=== PATIENT | female | born 1970 | race African-American/Black ===

== ENCOUNTER 2016-10-27 18:09 | Emergency (ER) | payer SELFPAY ==
[~2016-10-27] VITALS: Ht 154.9 cm; Wt 56.7 kg
[2016-10-27 18:15] VITALS: BP 159/112
[2016-10-27 19:07] LABS: BILIRUBIN,URINE NEGATIVE (NEG); GLUCOSE,URINE NEGATIVE (NEG); NITRITE,URINE NEGATIVE (NEG); PROTEIN,URINE NEGATIVE (NEG-TRACE); UROBILINOGEN,URINE 0.2 mg/dL (0.2 mg/dL)
[2016-10-27 19:12] LABS: BARBITURATES NEG (NEG); BENZODIAZEPINES NEG (NEG); CANNABINOIDS NEG (NEG); COCAINE POS (NEG); ETHANOL, URINE NEG (NEG); METHADONE NEG (NEG); OPIATES NEG (NEG); PHENCYCLIDINE NEG (NEG)
[2016-10-27] MEDS ORDERED: AZITHROMYCIN 250 MG TABLET PO ONE (19:15)
[2016-10-27] MEDS ORDERED: HYDROXYZINE IM 50 MG/ML VIAL. IM ONE (19:15)
[2016-10-27] MEDS ORDERED: CEFTRIAXONE IM 250 MG VIAL. IM ONE (19:15)
[2016-10-27] MEDS ORDERED: ONDANSETRON ODT 4 MG TAB.RAPDIS PO ONE (19:15)
[2016-10-27 19:33] LABS: BACTERIA,URINE 0 /HPF (0-FEW); RBC,URINE 0 /HPF (0-2); SQUAMOUS EPITHELIAL CELL,UR OCC /LPF; WBC,URINE OCC /HPF (0-4)
--- NOTE | 2016-10-27 22:00 | PHYS DOC ---
Past Medical History Past Medical History: Anxiety, Depression, Hypertension Past Surgical History: , Other Additional Past Surgical Histo: R SHOULDER SURGERY Additional Information: quit 1 year ago Alcohol Use: None Drug Use: None Adult General Chief Complaint Chief Complaint: FOREIGN BODY VAGINA HPI HPI 46-year-old female is presenting with subjective complaints of feeling a foreign object is in her vagina or rectum. She also states she feels as though there are bugs crawling on her lower extremities. She denies any vaginal bleeding or discharge. She denies any fever or chills. She denies any chest pain or shortness of breath. Patient is fully alert and oriented but does appear to be mildly anxious. Review of Systems Review of Systems Constitutional: Denies fever or chills [] Eyes: Denies change in visual acuity, redness, or eye pain [] HENT: Denies nasal congestion or sore throat [] Respiratory: Denies cough or shortness of breath [] Cardiovascular: No additional information not addressed in HPI [] GI: Denies abdominal pain, nausea, vomiting, bloody stools or diarrhea [] : Denies dysuria or hematuria [] Musculoskeletal: Denies back pain or joint pain [] Integument: Denies rash or skin lesions [] Neurologic: Denies headache, focal weakness or sensory changes [] Endocrine: Denies polyuria or polydipsia [] Current Medications Current Medications Current Medications Medications (Trade) Dose Ordered Sig/Leyla Start Time Stop Time Status Last Admin Dose Admin Azithromycin (Zithromax) 1,000 mg 1X ONCE 10/27/16 19:15 10/27/16 19:18 DC Ceftriaxone Sodium (Rocephin Im) 250 mg 1X ONCE 10/27/16 19:15 10/27/16 19:18 DC Hydroxyzine HCl (Vistaril Im) 25 mg 1X ONCE 10/27/16 19:15 10/27/16 19:18 DC Ondansetron HCl (Zofran Odt) 4 mg 1X ONCE 10/27/16 19:15 10/27/16 19:18 DC Allergies Allergies Allergies Coded Allergies Type Severity Reaction Last Updated Verified No Known Drug Allergies 07/30/15 No Physical Exam Physical Exam Constitutional: Well developed, well nourished, no acute distress, non-toxic appearance. [] HENT: Normocephalic, atraumatic, bilateral external ears normal, oropharynx moist, no oral exudates, nose normal. [] Eyes: PERRLA, EOMI, conjunctiva normal, no discharge. [] Neck: Normal range of motion, no tenderness, supple, no stridor. [] Cardiovascular:Heart rate regular rhythm, no murmur [] Lungs & Thorax: Bilateral breath sounds clear to auscultation [] Abdomen: Bowel sounds normal, soft, no tenderness, no masses, no pulsatile masses. [] Pelvic: Pelvic exam reveals a closed cervical os with a mild amount of discharge but no other acute findings. There is no foreign body seen Rectal: Rectal exam is negative for any gross blood or mass. There is no foreign body seen. Skin: Warm, dry, no erythema, no rash. [] Back: No tenderness, no CVA tenderness. [] Extremities: No tenderness, no cyanosis, no clubbing, ROM intact, no edema. [] Neurologic: Alert and oriented X 3, normal motor function, normal sensory function, no focal deficits noted. [] Psychologic: Affect normal, judgement normal, mood normal. [] Current Patient Data Vital Signs Vital Signs Date Time Temp Pulse Resp B/P Pulse Ox O2 Delivery O2 Flow Rate FiO2 10/27/16 18:15 98.6 104 20 159/112 100 Room Air 98.6 Lab Values Laboratory Tests Test 10/27/16 18:55 10/27/16 19:02 Urine Color Yellow Urine Clarity Clear Urine pH 6.0 Urine Specific [place] <=1.005 Urine Protein Negativemg/dL (NEG-TRACE) Urine Glucose (UA) Negativemg/dL (NEG) Urine Ketones (Stick) Negativemg/dL (NEG) Urine Blood Negative (NEG) Urine Nitrite Negative (NEG) Urine Bilirubin Negative (NEG) Urine Urobilinogen Dipstick 0.2mg/dL (0.2 mg/dL) Urine Leukocyte Esterase Negative (NEG) Urine RBC 0/HPF (0-2) Urine WBC Occ/HPF (0-4) Urine Squamous Epithelial Cells Occ/LPF Urine Bacteria 0/HPF (0-FEW) Urine Mucus Mod/LPF Urine Opiates Screen Neg (NEG) Urine Methadone Screen Neg (NEG) Urine Barbiturates Neg (NEG) Urine Phencyclidine Screen Neg (NEG) Urine Amphetamine/Methamphetamine Pos (NEG) Urine Benzodiazepines Screen Neg (NEG) Urine Cocaine Screen Pos (NEG) Urine Cannabinoids Screen Neg (NEG) Urine Ethyl Alcohol Neg (NEG) POC Urine HCG, Qualitative Hcg negative (Negative) Microbiology 10/27/16 Wet Prep - Final, Complete EKG EKG [] Radiology/Procedures Radiology/Procedures [] Course & Med Decision Making Course & Med Decision Making Pertinent Labs and Imaging studies reviewed. (See chart for details) This 46 old female who resents with subjective complaints of a foreign body in her rectum or vagina had a negative KUB for any obvious foreign body. Her physical exam also did not reveal any acute abnormality other than vaginal discharge. I discussed the possibility of treating her for bacterial vaginosis as well as STI. Patient would like to be treated for STI. I then walked out of the room to order her treatment and something for her anxious type symptoms and she states she would now like to leave before receiving medications. I sent her swabs off for wet prep. She is not willing to stay for any medications at this time and ultimately signed out AMA. Her urinalysis was negative for any sign of infection. Urine toxicology screen did show evidence of amphetamine and cocaine use. Dragon Disclaimer Dragon Disclaimer This electronic medical record was generated, in whole or in part, using a voice recognition dictation system. Departure Departure Impression: Primary Impression: Left against medical advice Disposition: AGAINST MEDICAL ADVICE Condition: STABLE Referrals: UNKNOWN PCP NAME (PCP) STEPH GLASGOW DO Oct 27, 2016 22:00
--- NOTE | 2016-10-28 09:34 | RAD ---
Examination: Single frontal view the abdomen History: History of foreign body Comparison: None available Findings: There is no evidence of free air under the hemidiaphragms. The bowel gas pattern appears unremarkable. No evidence of radiopaque foreign body visualized. A few pelvic phleboliths identified in the region of the pelvis. Impression: 1. Unremarkable bowel gas pattern. 2. No evidence of radiopaque foreign body visualized.
== END 2016-10-27 19:29 | disposition left against medical advice (07) ==
LOC: ER 18:09
DX: N89.8 Other specified noninflammatory disorders of vagina (principal); F41.9 Anxiety disorder, unspecified; F32.9 Major depressive disorder, single episode, unspecified; I10 Essential (primary) hypertension; Z87.891 Personal history of nicotine dependence
CPT/HCPCS: 74000; 81001; 81025; 87491; 87591; 99285; G0481; Q0111

== ENCOUNTER 2017-09-12 12:47 | Emergency (ER) | payer SELFPAY ==
[2017-09-12 13:04] LABS: URINE HCG POC HCG NEGATIVE (Negative)
[2017-09-12] MEDS: IV NORMAL SALINE 1000ML BAG 1,000 ML IV (13:29)
[2017-09-12 13:35] LABS: ADD MAN DIFF? NO
[2017-09-12] MEDS ORDERED: CONTRAST GIVEN MC (13:45)
[2017-09-12] MEDS: IOHEXOL 300 MG/ML 100ML VIAL. IV (13:45)
[2017-09-12 13:47] LABS: BASO # 0.1 x10^3/uL (0.0-0.2); BASO % 1 % (0-3); EOS % 1 % (0-3); HEMATOCRIT 34.5 % (36.0-47.0); HEMOGLOBIN 11.1 g/dL (12.0-15.5); LYMPH # 1.7 x10^3/uL (1.0-4.8); LYMPH % 32 % (24-48); MEAN CORPUSCULAR HEMOGLOBIN 26 pg (25-35); MEAN CORPUSCULAR HGB CONC 32 g/dL (31-37); MEAN CORPUSCULAR VOLUME 82 fL (79-100); MONO # 0.6 x10^3/uL (0.0-1.1); MONO % 10 % (0-9); NEUT % 56 % (31-73); PLATELET COUNT 275 x10^3/uL (140-400); RED BLOOD COUNT 4.21 x10^6/uL (3.50-5.40); WHITE BLOOD COUNT 5.3 x10^3/uL (4.0-11.0)
[2017-09-12 13:49] LABS: ANION GAP 13 (6-14); BLOOD UREA NITROGEN 20 mg/dL (7-20); BUN/CREATININE RATIO 22 (6-20); CALCIUM 8.6 mg/dL (8.5-10.1); CARBON DIOXIDE 24 mmol/L (21-32); CHLORIDE 103 mmol/L (98-107); CREATININE 0.9 mg/dL (0.6-1.0); GFR 81.9; GLUCOSE 97 mg/dL (70-99); POTASSIUM 4.2 mmol/L (3.5-5.1); SODIUM 140 mmol/L (136-145)
[2017-09-12 13:54] LABS: ALBUMIN 3.7 g/dL (3.4-5.0); ALK PHOS 65 U/L (46-116); ALT (SGPT) 20 U/L (14-59); AST (SGOT) 15 U/L (15-37); LIPASE 314 U/L (73-393); TOTAL BILIRUBIN 0.4 mg/dL (0.2-1.0); TOTAL PROTEIN 7.5 g/dL (6.4-8.2)
== END 2017-09-12 16:30 | disposition home or self-care (01) ==
LOC: ER 12:47
DX: A08.4 Viral intestinal infection, unspecified (principal); F41.9 Anxiety disorder, unspecified; F32.9 Major depressive disorder, single episode, unspecified; I10 Essential (primary) hypertension; Z79.899 Other long term (current) drug therapy
CPT/HCPCS: 36415; 74177; 80053; 81025; 83690; 85025; 96360; 96361; 99285-25; J7030; Q9967

== ENCOUNTER 2018-01-01 15:11 | Emergency (ER) | payer SELFPAY | END 2018-01-01 15:43 | disposition home or self-care (01) | LOC: ER 15:11 | DX: S40.862A Insect bite (nonvenomous) of left upper arm, initial encounter (principal); S40.861A Insect bite (nonvenomous) of right upper arm, initial encounter; S80.862A Insect bite (nonvenomous), left lower leg, initial encounter; S80.861A Insect bite (nonvenomous), right lower leg, initial encounter; S20.362A Insect bite (nonvenomous) of left front wall of thorax, initial encounter; S20.361A Insect bite (nonvenomous) of right front wall of thorax, initial encounter; W57.XXXA Bitten or stung by nonvenomous insect and other nonvenomous arthropods, initial encounter; Y93.89 Activity, other specified; Y92.89 Other specified places as the place of occurrence of the external cause; Y99.8 Other external cause status | CPT/HCPCS: 99281 ==

== ENCOUNTER 2018-01-29 21:07 | Emergency (ER) | payer SELFPAY | END 2018-01-29 21:55 | disposition left against medical advice (07) | LOC: ER 21:07 | DX: L03.221 Cellulitis of neck (principal) | CPT/HCPCS: 99281 ==

== ENCOUNTER 2019-08-15 09:58 | Emergency (ER) | payer SELFPAY ==
[~2019-08-15] VITALS: Ht 157.5 cm; Wt 59.0 kg
[~2019-08-15 09:58] MED LIST: NEOM28.32 TP; SULF1TAB24 PO
[2019-08-15 10:26] VITALS: BP 141/75
[2019-08-15] MEDS ORDERED: ALBU2.5V8 IH (11:49)
[2019-08-15] MEDS ORDERED: PERM60CR11 TP (11:50)
[2019-08-15] MEDS ORDERED: AZIT250T PO (11:50)
[2019-08-15] MEDS ORDERED: BENZ100C PO (11:50)
--- NOTE | 2019-08-15 11:50 | PHYS DOC ---
Past Medical History Past Medical History: No Pertinent History Past Surgical History: , Other Additional Past Surgical Histo: R ROTOR CUFF Alcohol Use: Occasionally Drug Use: None Adult General Chief Complaint Chief Complaint: COUGH HPI HPI Patient is a 49 year old female patient without a history of medical problem who presents with complaining of cough. Patient complaining of nonproductive cough for one week and nasal congestion without chest pain, shortness of breath, fever, sick contact. Patient states she works at [employer] and always feels well while she is at work or at home. Patient also states she was exposed to scabies with her roommate and has had itching of her hands and body for the last one or 2 months that getting worse at night. Review of Systems Review of Systems Constitutional: Denies fever or chills [] Eyes: Denies change in visual acuity, redness, or eye pain [] HENT: Denies sore throat [] Respiratory: Denies shortness of breath, reports cough [] Cardiovascular: No additional information not addressed in HPI [] GI: Denies abdominal pain, nausea, vomiting, bloody stools or diarrhea [] : Denies dysuria or hematuria [] Musculoskeletal: Denies back pain or joint pain [] Integument: Reports rash and itching Neurologic: Denies headache, focal weakness or sensory changes [] Endocrine: Denies polyuria or polydipsia [] All other systems were reviewed and found to be within normal limits, except as documented in this note. Allergies Allergies Allergies Coded Allergies Type Severity Reaction Last Updated Verified No Known Drug Allergies 07/30/15 No Physical Exam Physical Exam Constitutional: Well developed, well nourished, no acute distress, non-toxic appearance. [] HENT: Normocephalic, atraumatic, bilateral external ears normal, oropharynx moist, no oral exudates, nose normal. [] Eyes: PERRLA, EOMI, conjunctiva normal, no discharge. [] Neck: Normal range of motion, no tenderness, supple, no stridor. [] Cardiovascular:Heart rate regular rhythm, no murmur [] Lungs & Thorax: Bilateral breath sounds clear to auscultation [] Skin: Warm, dry, pruritic rash between fingers. Back: No tenderness, no CVA tenderness. [] Extremities: No tenderness, no cyanosis, no clubbing, ROM intact, no edema. [] Neurologic: Alert and oriented X 3, normal motor function, normal sensory function, no focal deficits noted. [] Psychologic: Affect normal, judgement normal, mood normal. [] Current Patient Data Vital Signs Vital Signs Date Time Temp Pulse Resp B/P (MAP) Pulse Ox O2 Delivery O2 Flow Rate FiO2 08/15/19 10:26 98.7 104 19 141/75 (97) 98 Room Air 98.7 EKG EKG [] Radiology/Procedures Radiology/Procedures [] Course & Med Decision Making Course & Med Decision Making discharge: I've spoken with the patient and/or caregivers. I've explained the patient's condition, diagnosis and treatment plan based on information available to me at this time. I've answered the patient's and/or caregivers questions and addressed any concerns. The patient and/or caregivers have a good understanding the patient's diagnosis, condition and treatment plan as can be expected at this point. Vital signs have been stabilized. The patient's condition is stable for discharge from the emergency department. The patient will pursue further outpatient evaluation with her primary care provider or other designated consulting physician as outlined in the discharge instructions. Patient and/or caregivers are agreeable to this plan of care and follow-up instructions have been explained in detail. The patient and/or caregivers have received these instructions in written format and expressed understanding of these discharge instructions. The patient and her caregivers are aware that if any significant change in condition or worsening of symptoms should prompt him to immediately return to this of the closest emergency department. If an emergent department is not readily available I would encourage him to call 911. Suhaon Disclaimer Dragon Disclaimer This electronic medical record was generated, in whole or in part, using a voice recognition dictation system. Departure Departure Impression: Primary Impression: Acute bronchitis Additional Impression: Scabies Disposition: HOME, SELF-CARE (at 1147) Condition: STABLE Referrals: NO PCP (PCP) Patient Instructions: Acute Bronchitis, Scabies Additional Instructions: Drink plenty of liquids Follow-up with your primary care physician in 3-5 days Return to ER if not getting better Thank you for visiting [facility]. We appreciate you trusting us with your care. If any additional problems come up don't hesitate to return to visit us. Please follow up with your primary care provider so they can plan additional care if needed and know about the problem that you had. If symptoms worsen come back to the Emergency Department. Any concerning symptoms that start such as chest pain, shortness of air, weakness or numbness on one side of the body, running high fevers or any other concerning symptoms return to the ER. Scripts Permethrin (ELIMITE) 60 Gm Cream..g. 1 JOSÉ LUIS TP ONCE, #60 GM 1 Refill massage into skin from head to soles of feet one time, leave on for 8-14 h ours then remove by thorough washing Prov: MERCY MURRELL MD 08/15/19 Azithromycin (ZITHROMAX) 250 Mg Tablet 250 MG PO as directed for ANTI-BIOTIC, #6 TAB 0 Refills Take 2 PO x 1 days Then take 1 PO q 24 hour for the next 4 days Prov: MERCY MURRELL MD 08/15/19 Benzonatate (TESSALON PERLE) 100 Mg Capsule 1 CAP PO TID for cough, #21 CAP Prov: MERCY MURRELL MD 08/15/19 Albuterol Sulfate (PROAIR HFA INHALER) 8.5 Gm Hfa.aer.ad 2 PUFF IH PRN Q4-6HRS PRN for wheezing for 21 Days, #1 INHALER 0 Refills Prov: MERCY MURRELL MD 08/15/19 Problem Qualifiers Primary Impression: Acute bronchitis Bronchitis organism: unspecified organism Qualified Codes: J20.9 - Acute bronchitis, unspecified MERCY MURRELL MD Aug 15, 2019 11:50
== END 2019-08-15 11:58 | disposition home or self-care (01) ==
LOC: ER 09:58
DX: J20.9 Acute bronchitis, unspecified (principal); B86 Scabies; R21 Rash and other nonspecific skin eruption; Z98.890 Other specified postprocedural states
CPT/HCPCS: 99283

== ENCOUNTER 2020-08-15 11:55 | Emergency (ER) | payer SELFPAY ==
[~2020-08-15] VITALS: Ht 157.5 cm; Wt 60.0 kg
[~2020-08-15 11:55] MED LIST changes: +ALBU2.5V8 IH; +AZIT250T PO; +BENZ100C PO; +PERM60CR11 TP
--- NOTE | 2020-08-15 12:30 | ED.ADGEN ---
Past Medical History Past Medical History: No Pertinent History Past Surgical History: , Other Additional Past Surgical Histo: R ROTOR CUFF Smoking Status: Former Smoker Alcohol Use: Occasionally Drug Use: None General Adult EDM: Chief Complaint: MULTIPLE COMPLAINTS HPI: HPI: Patient is a 50 year old AA female who presents to the emergency department with complaints of a tampon being stuck in her vagina for the last 2 days. Patient states that she has tried getting the tampon out but is unable to. She reports that there is a foul odor with bloody discharge coming from her vagina. Patient denies any irregular vaginal discharge or odor prior to the tampon becoming stuck. She denies any fever, abdominal pain, vomiting, diarrhea, cough, shortness of breath, back pain, dysuria, or increased urinary frequency. Patient states that she has had frequent headaches behind her left eye with sensitivity to light and nausea since . She denies any history of migraines. Review of Systems: Review of Systems: Complete ROS is negative unless otherwise noted in HPI. Current Medications: Current Medications Medications (Trade) Dose Ordered Sig/Leyla Start Time Stop Time Status Last Admin Dose Admin Diphenhydramine HCl (Benadryl) 25 mg 1X ONCE 08/15/20 12:45 08/15/20 12:46 DC 08/15/20 13:19 25 MG Methylprednisolone Sodium Succinate (SOLU-Medrol 125MG VIAL) 125 mg 1X ONCE 08/15/20 12:45 08/15/20 12:46 DC 08/15/20 13:18 125 MG Prochlorperazine Edisylate (Compazine) 10 mg 1X ONCE 08/15/20 12:45 08/15/20 12:46 DC 08/15/20 13:19 10 MG Sodium Chloride 1,000 ml @ 1,000 mls/hr 1X ONCE 08/15/20 12:45 08/15/20 13:44 DC 08/15/20 13:17 1,000 MLS/HR Allergies: Allergies: Allergies Coded Allergies Type Severity Reaction Last Updated Verified No Known Drug Allergies 07/30/15 No Physical Exam: PE: See Above Constitutional: Well developed, well nourished, no acute distress, non-toxic appearance. HENT: Normocephalic, atraumatic, bilateral external ears normal, nose normal. Eyes: PERRLA, EOMI, conjunctiva normal, no discharge. Neck: Normal range of motion, no stridor. Cardiovascular: Heart rate regular rhythm Lungs & Thorax: Respirations even and unlabored, no retractions, no respiratory distress Pelvic Exam: Manugrapher present Bruno RN Abdomen: Nontender, soft External Genitalia: Normal Skin Speculum: Normal vaginal mucosa, bloody cervical discharge; retained tampon present in the vaginal vault with foul odor noted, no purulent discharge Bimanual: Deferred Skin: Warm, dry, no erythema, no rash. Extremities: No cyanosis, ROM intact, no edema. Neurologic: Alert and oriented X 3, normal motor, normal sensory, no focal deficits noted. Psychologic: Affect normal, judgement normal, mood normal. Current Patient Data: Labs: Laboratory Tests Test 08/15/20 12:05 Urine Test Negative (NEG) Vital Signs: Vital Signs Date Time Temp Pulse Resp B/P (MAP) Pulse Ox O2 Delivery O2 Flow Rate FiO2 08/15/20 14:10 94 18 159/85 (109) 99 Room Air 08/15/20 12:05 98.4 98.4 EKG: EKG: [] Heart Score: Risk Factors: Risk Factors: DM, Current or recent (<one month) smoker, HTN, HLP, family history of CAD, obesity. Risk Scores: Score 0 - 3: 2.5% MACE over next 6 weeks - Discharge Home Score 4 - 6: 20.3% MACE over next 6 weeks - Admit for Clinical Observation Score 7 - 10: 72.7% MACE over next 6 weeks - Early Invasive Strategies Radiology/Procedures: Radiology/Procedures: PROCEDURE: CT HEAD WO CONTRAST CT scan of the head without contrast 08/15/2020 Clinical History: Headache behind the left eye since . Technique: Unenhanced, contiguous, 5 mm axial sections were obtained through the head. One or more of the following individualized dose reduction techniques were utilized for this study: 1. Automated exposure control. 2. Adjustment of the mA and/or kV according to patient size. 3. Use of iterative reconstruction technique. Findings: The ventricles and sulci are within normal limits in size and configuration. No area of abnormal attenuation seen involving the brain parenchyma. No extra-axial fluid collection is noted. No skull fracture is seen. The orbits are within normal limits. Impression: No acute intracranial abnormality is seen. [] Course & Med Decision Making: Course & Med Decision Making Pertinent Labs and Imaging studies reviewed. (See chart for details) 50-year-old female presented to the emergency department with complaints of headaches behind her left eye for the last month and a retained tampon in her vagina for the last 2 days. I was able to remove the retained tampon as documented above. Patient was given a liter of normal saline, 10 mg of Compazine, 25 mg of Benadryl, and 125 mg of Solu-Medrol for treatment of her headache, the patient reported complete resolution of her headache after these medications. CT of the patient's head revealed no acute findings. []I have reviewed the PA/TAXICAB DRIVER's note and Plan of Care. I was available for consultation as needed during the patient's visit in the emergency department. I agree with the clinical impression, plans and disposition. Dragon Disclaimer: Dragon Disclaimer: This electronic medical record was generated, in whole or in part, using a voice recognition dictation system. Departure Departure Impression: Primary Impression: Migraine headache Additional Impression: Retained tampon Disposition: 01 DC HOME SELF CARE/HOMELESS Condition: STABLE Referrals: NO PCP (PCP) Patient Instructions: Migraine Headache, [id number], Vaginal Foreign Body, [id number] Additional Instructions: Home to rest in a cool dark room, you can take Tylenol or ibuprofen as needed for pain. I do not recommend that you use vaginal douches. Follow-up with your primary care doctor next week, return to the ER if symptoms worsen. Problem Qualifiers Primary Impression: Migraine headache Migraine type: unspecified Status migrainosus presence: without status migrainosus Intractability: not intractable Qualified Codes: G43.909 - Migraine, unspecified, not intractable, without status migrainosus Additional Impression: Retained tampon Encounter type: initial encounter Qualified Codes: T19.2XXA - Foreign body in vulva and vagina, initial encounter ABIEL PAGE APRN Aug 15, 2020 12:29 STEPH NEWMAN MD Aug 15, 2020 14:40
[2020-08-15] MEDS ORDERED: PROCHLORPERAZINE 10 MG/2 ML VIAL. IV ONE (12:45)
[2020-08-15] MEDS ORDERED: diphenhydrAMINE 50 MG/ML VIAL IVP ONE (12:45)
[2020-08-15] MEDS ORDERED: methylPREDNISolone SOD SUCC PF 125 MG/2 ML VIAL. IV ONE (12:45)
[2020-08-15] MEDS ORDERED: IV NORMAL SALINE 1000ML BAG 1,000 ML IV ONE (12:45)
[2020-08-15 12:54] LABS: U PREG PATIENT NEGATIVE (NEG)
--- NOTE | 2020-08-15 13:51 | RAD ---
CT scan of the head without contrast 08/15/2020 Clinical History: Headache behind the left eye since [place]. Technique: Unenhanced, contiguous, 5 mm axial sections were obtained through the head. One or more of the following individualized dose reduction techniques were utilized for this study: 1. Automated exposure control. 2. Adjustment of the mA and/or kV according to patient size. 3. Use of iterative reconstruction technique. Findings: The ventricles and sulci are within normal limits in size and configuration. No area of abn ormal attenuation seen involving the brain parenchyma. No extra-axial fluid collection is noted. No s kull fracture is seen. The orbits are within normal limits. Impression: No acute intracranial abnormality is seen. Electronically signed by: Filiberto Jimenez MD (08/15/2020 1:48 PM) [id number]
[2020-08-15 14:10] VITALS: BP 159/85
== END 2020-08-15 14:15 | disposition home or self-care (01) ==
LOC: ER 11:55
DX: T19.2XXA Foreign body in vulva and vagina, initial encounter (principal); G43.909 Migraine, unspecified, not intractable, without status migrainosus; Z87.891 Personal history of nicotine dependence; X58.XXXA Exposure to other specified factors, initial encounter; Y93.89 Activity, other specified; Y92.89 Other specified places as the place of occurrence of the external cause; Y99.8 Other external cause status
CPT/HCPCS: 70450; 81025; 96361; 96374; 96375; 99284; J0780; J1200; J2930; J7030